=== PATIENT | female | born 1930 | race Caucasian/White ===

== ENCOUNTER 2021-03-09 22:46 | Emergency (ER) | payer BC, OTHER ==
[~2021-03-09] VITALS: Ht 154.9 cm; Wt 68.0 kg
[2021-03-09 22:55] VITALS: BP_SYST 216
[2021-03-09] MEDS ORDERED: LOSA100T3 PO (23:42)
[2021-03-09] MEDS ORDERED: HYDR-3917 PO (23:42)
[2021-03-09] MEDS ORDERED: LEVO112C4 PO (23:42)
[2021-03-09] MEDS ORDERED: NOR10 PO (23:42)
[2021-03-09] MEDS ORDERED: MELO15TA13 PO (23:42)
[2021-03-09] MEDS ORDERED: FOLI-43 PO (23:42)
[2021-03-09] MEDS ORDERED: METO25TA3 PO (23:42)
[2021-03-09] MEDS ORDERED: FAMO20TA8 PO (23:42)
[2021-03-09] MEDS ORDERED: CEPH250C PO (23:42)
[2021-03-09] MEDS ORDERED: MULT-1089 PO (23:42)
[2021-03-09] MEDS ORDERED: CLON-433 PO (23:42)
[2021-03-09] MEDS ORDERED: LACT1CAP61 PO (23:42)
[2021-03-09] MEDS ORDERED: ACET-2634 PO (23:42)
[2021-03-10] MEDS ORDERED: ONDANSETRON HCL 4 MG/2 ML VIAL IVP ONE (00:30)
[2021-03-10] MEDS ORDERED: MORPHINE 4 MG INJ. 4 MG/ML VIAL IVP ONE (00:30)
[2021-03-10] MEDS ORDERED: hydrALAZINE HCL 20 MG/ML VIAL IVP ONE (02:00)
[2021-03-10 02:07] LABS: ANION GAP 9 (5-15); CHLORIDE 104 mmol/L (98-107); CREATININE 1.55 mg/dL (0.55-1.30); GLUCOSE 102 mg/dL (70-99); POTASSIUM 4.1 mmol/L (3.5-5.1); SODIUM SERUM 138 mmol/L (136-145); UREA NITROGEN, BLOOD 23 mg/dL (8-21)
[2021-03-10 02:11] LABS: HEMATOCRIT 34.4 % (36-48); HEMOGLOBIN 11.6 g/dL (12.0-16.0); RED BLOOD CELL COUNT(AUTO) 3.95 MIL/uL (4.2-6.2); WHITE BLOOD COUNT (AUTO) 6.4 K/uL (4.8-10.8)
[2021-03-10 02:12] LABS: LYMPHOCYTES % (AUTO) 25.3 % (20.5-51.5); MEAN CORPUSCULAR HEMOGLOBIN 29 pg (27-31); MEAN CORPUSCULAR HGB CONC 34 % (32-36); MEAN CORPUSCULAR VOLUME 87 fL (79.0-98.0); MONOCYTES % (AUTO) 6.6 % (1.7-9.3); NEUTROPHILS % (AUTO) 60.7 % (40.0-70.0); PLATELET COUNT (AUTO) 327 K/uL (130-430); RED CELL DISTRIBUTION WIDTH 14.8 % (9.0-15.0)
[2021-03-10 02:13] LABS: BASOPHILS % (AUTO) 0.4 % (0.0-2.0)
[2021-03-10 02:14] LABS: ALANINE AMINOTRANSFERASE 14 U/L (12-78); ALBUMIN 3.1 g/dL (3.4-4.8); ASPARTATE AMINOTRANSFERASE 22 U/L (10-37); TOTAL BILIRUBIN 0.2 mg/dL (0.0-1.0)
[2021-03-10] MEDS ORDERED: PRED20TA PO (02:22)
[2021-03-10] MEDS ORDERED: ACET12.55 PO (02:22)
[2021-03-10] MEDS ORDERED: amLODIPine BESYLATE 10 MG TABLET PO ONE (05:30)
[2021-03-10 05:42] LABS: ERYTHROCYTE SEDIMENTATION RATE 77 MM/HR (0-20)
[2021-03-10 09:22] VITALS: BP_SYST 148
== END 2021-03-10 08:24 | disposition home or self-care (01) ==
LOC: SED 22:46
DX: M17.12 Unilateral primary osteoarthritis, left knee (principal); I10 Essential (primary) hypertension; Z79.899 Other long term (current) drug therapy
CPT/HCPCS: 29505; 36415; 73560; 80053; 85025; 85651; 96374; 96375; 99284; J0360; J2270; J2405

== ENCOUNTER 2021-03-13 11:51 | Emergency (ER) | payer OTHER, MEDICAID ==
[~2021-03-13] VITALS: Ht 152.4 cm; Wt 68.0 kg
[~2021-03-13 11:51] MED LIST: ACET-2634 PO; ACET12.55 PO; CEPH250C PO; CLON-433 PO; FAMO20TA8 PO; FOLI-43 PO; HYDR-3917 PO; LACT1CAP61 PO; LEVO112C4 PO; LOSA100T3 PO; MELO15TA13 PO; METO25TA3 PO; MULT-1089 PO; NOR10 PO; PRED20TA PO
--- NOTE | 2021-03-13 12:00 | NUR ---
Patient to ER bed 1 to gown for evaluation. Side rails up. Report given to Samantha SALAZAR.
[2021-03-13 12:01] VITALS: BP_SYST 192
--- NOTE | 2021-03-13 12:22 | NUR ---
ER DR. RICHARDSON AT THE BEDSIDE EXAMINING PT
[2021-03-13] MEDS ORDERED: cloNIDine HCL 0.1 MG TABLET PO ONE (12:30)
--- NOTE | 2021-03-13 12:33 | NUR ---
LAB AT THE BEDSIDE FOR BLOOD DRAW
[2021-03-13 12:49] LABS: BASOPHILS # (AUTO) 0.1 K/uL (0.0-0.2); EOSINOPHILS # (AUTO) 0.2 K/uL (0.0-0.4); HEMOGLOBIN 12.4 g/dL (12.0-16.0); MEAN CORPUSCULAR HEMOGLOBIN 30 pg (27-31); NEUTROPHILS # (AUTO) 5.4 K/uL (1.8-7.7); RED CELL DISTRIBUTION WIDTH 14.5 % (9.0-15.0)
[2021-03-13 13:00] LABS: ANION GAP 5 (5-15); CALCIUM 9.6 mg/dL (8.4-11.0); CHLORIDE 102 mmol/L (98-107); GLUCOSE 116 mg/dL (70-99); POTASSIUM 3.9 mmol/L (3.5-5.1); SODIUM SERUM 133 mmol/L (136-145); UREA NITROGEN, BLOOD 21 mg/dL (8-21)
[2021-03-13 13:06] LABS: ALANINE AMINOTRANSFERASE 14 U/L (12-78); ALBUMIN 3.1 g/dL (3.4-4.8); ASPARTATE AMINOTRANSFERASE 17 U/L (10-37); TOTAL BILIRUBIN 0.2 mg/dL (0.0-1.0)
[2021-03-13 13:10] LABS: BASOPHILS % (AUTO) 1.1 % (0.0-2.0); EOSINOPHILS % (AUTO) 2.7 % (0.0-4.0); HEMATOCRIT 36.4 % (36-48); LYMPHOCYTES # (AUTO) 1.1 K/uL (1.0-5.5); LYMPHOCYTES % (AUTO) 15.2 % (20.5-51.5); MEAN CORPUSCULAR HGB CONC 34 % (32-36); MEAN CORPUSCULAR VOLUME 87 fL (79.0-98.0); MONOCYTES # (AUTO) 0.4 K/uL (0.0-1.0); PLATELET COUNT (AUTO) 324 K/uL (130-430); RED BLOOD CELL COUNT(AUTO) 4.18 MIL/uL (4.2-6.2)
--- NOTE | 2021-03-13 13:12 | NUR ---
PT PROVIDED WITH LUNCH TRAY
--- NOTE | 2021-03-13 13:49 | NUR ---
JASON KIM, HEALTH AND SEARCH DIRECTOR FOR REPORT. PT TO BE DC'D BACK TO [facility] MORRISSEY.
--- NOTE | 2021-03-13 16:30 | NUR ---
PT RESTING IN GURNEY, AWAKE, ALERT. EVEN, UNLABORED RESPIRATIONS, NO DISTRESS NOTED
[2021-03-13 18:15] VITALS: BP_SYST 129
--- NOTE | 2021-03-13 18:15 | NUR ---
Patient given written and verbal discharge instructions and verbalizes understanding. ER MD discussed with patient the results and treatment provided. Patient in stable condition. ID arm band removed. NO Rx given. Patient educated on pain management and to follow up with PMD. Pain Scale 0/10. Opportunity for questions provided and answered. Medication side effect fact sheet provided.
== END 2021-03-13 18:15 | disposition home or self-care (01) ==
LOC: SED 11:51 → MERGE 11:51 → SED 18:15
DX: I16.0 Hypertensive urgency (principal)
CPT/HCPCS: 36415; 80053; 83880; 84484; 85025; 93005; 99284